=== PATIENT | male | born 1980 | race Caucasian/White ===

== ENCOUNTER 2016-02-15 17:37 | Emergency (ER) | payer OTHER ==
[~2016-02-15] VITALS: Ht 185.4 cm; Wt 102.8 kg
[~2016-02-15 17:37] MED LIST: ACET-1311 PO; MULT-506 PO
[2016-02-15 17:41] VITALS: Ht 185.4 cm; Wt 102.8 kg
[2016-02-15] MEDS ORDERED: MoRPHine SULFATE 10 MG/ML CARP/VIAL IM STA (18:18)
[2016-02-15] MEDS ORDERED: KETOROLAC TROMETHAMINE 60 MG/2 ML VIAL IM STA (18:18)
[2016-02-15] MEDS ORDERED: DIAZEPAM 5MG TAB PO ONE (18:30)
--- NOTE | 2016-02-15 20:55 | DIAGNOSTIC IMAGING REPORT ---
LUMBAR SPINE MRI HISTORY: lumbar back pain, saddle paresthesias TECHNIQUE: Multiplanar multisequence MRI of the lumbar spine was performed without the use of contrast. COMPARISON: None. FINDINGS: For the purpose of the report the L5-S1 disc space will be located on axial image 23 of 25. Alignment and curvature are intact. There is no fracture or subluxation. Vertebral body heights are well-maintained. The conus terminates at the T12-L1 disc space level. Mild disc space narrowing and disc desiccation at L4-L5. Paraspinal soft tissues are unremarkable. L1-L2: No significant central canal or neural foraminal narrowing. L2-L3: No significant central canal or neural foraminal narrowing. L3-L4: No significant central canal or neural foraminal narrowing. L4-L5: Small broad-based posterior disc protrusion which likely abuts the bilateral transiting L5 nerve roots. There is no significant central canal or neural foraminal narrowing. L5-S1: No significant central canal or neural foraminal narrowing. IMPRESSION: 1. No fracture or subluxation within the lumbar spine. 2. No significant central canal or neural foraminal narrowing. 3. Small broad-based posterior disc protrusion at L4-L5 which likely abuts the bilateral transiting L5 nerve roots. Electronically signed by: Son Pitts M.D. 02/15/2016 8:53 PM Dictated Date/Time: 02/15/2016 8:50 PM
[2016-02-15] MEDS ORDERED: OXYC1TAB3 PO (21:18)
[2016-02-15] MEDS ORDERED: CYCL10TA6 PO (21:18)
--- NOTE | 2016-02-15 21:20 | EMERGENCY ROOM VISIT NOTE ---
History First contact with patient: 17:54 Chief Complaint: BACK PAIN Stated Complaint: LOW BACK PAIN History of Present Illness The patient is a 35 year old male who presents to the Emergency Room with complaints of low back pain which started this morning. The patient reports that he was doing squats at the gym when his back "seized up." He reports he has had intense pain in the back since then. He is having difficulty standing up straight and bearing weight on his legs. The pain does not radiate anywhere. He describes it as sharp and rates it 8/10. He has taken Motrin and leftover oxycodone with no relief. He denies any numbness or weakness in the legs. He does report a strange sensation in his groin area. He denies any incontinence. He does report a history of back spasms but states that he has never had symptoms this severe. The pain is worse on the left side. He denies fevers/chills or urinary symptoms. Review of Systems A complete 10-point Review of Systems was discussed with the patient, with pertinent positives and negatives listed in the History of Present Illness. All remaining Review of Systems questions can be considered negative unless otherwise specified. Social History Smoking Status: Never Smoker Current/Historical Medications Scheduled Cyclobenzaprine Hcl (Flexeril), 10 MG PO TID Multivitamin (Multivitamin), 1 TAB PO DAILY Scheduled PRN Oxycodone Ir (Roxicodone Ir), 1-2 TAB PO Q4H PRN for Pain Allergies Coded Allergies: No Known Allergies (Verified , 02/15/16) Physical Exam Vital Signs Date Time Temp Pulse Resp B/P Pulse Ox O2 Delivery O2 Flow Rate FiO2 02/15/16 21:31 36.4 68 16 142/89 95 02/15/16 17:41 36.4 68 16 142/89 95 Room Air Physical Exam VITALS: Vitals are noted on the nurse's note and reviewed by myself. Vital signs stable. GENERAL: This is a 35-year-old male, in no acute distress, nondiaphoretic, well- developed well-nourished. SKIN: Capillary reflex less than 2 seconds. HEART: Regular rate and rhythm without murmurs gallops or rubs. LUNGS: Clear to auscultation bilaterally without wheezes, rales or rhonchi. No retractions or accessory muscle use. ABDOMEN: Positive bowel sounds x 4. Soft, nontender, without masses or organomegaly. MUSCULOSKELETAL: There is vague tenderness of the right lumbar region. Full range of motion of the spine. Strength 5/5 in bilateral lower extremities. Negative straight leg raise test. NEURO: Patient was alert and oriented to person place and time. Normal sensation to light and sharp touch. Deep tendon reflexes 2+ throughout. No focal neurological deficits. Medical Decision & Procedures ER Provider Diagnostic Interpretation: LUMBAR SPINE MRI HISTORY: lumbar back pain, saddle paresthesias TECHNIQUE: Multiplanar multisequence MRI of the lumbar spine was performed without the use of contrast. COMPARISON: None. FINDINGS: For the purpose of the report the L5-S1 disc space will be located on axial image 23 of 25. Alignment and curvature are intact. There is no fracture or subluxation. Vertebral body heights are well-maintained. The conus terminates at the T12-L1 disc space level. Mild disc space narrowing and disc desiccation at L4-L5. Paraspinal soft tissues are unremarkable. L1-L2: No significant central canal or neural foraminal narrowing. L2-L3: No significant central canal or neural foraminal narrowing. L3-L4: No significant central canal or neural foraminal narrowing. L4-L5: Small broad-based posterior disc protrusion which likely abuts the bilateral transiting L5 nerve roots. There is no significant central canal or neural foraminal narrowing. L5-S1: No significant central canal or neural foraminal narrowing. IMPRESSION: 1. No fracture or subluxation within the lumbar spine. 2. No significant central canal or neural foraminal narrowing. 3. Small broad-based posterior disc protrusion at L4-L5 which likely abuts the bilateral transiting L5 nerve roots. Medications Administered Medications (Trade) Dose Ordered Sig/Lynette Route Start Time Stop Time Status Last Admin Dose Admin Morphine Sulfate (MoRPHine SULFATE INJ) 8 mg NOW STAT IM 02/15/16 18:18 02/15/16 18:20 DC 02/15/16 18:26 8 MG Diazepam (Valium Tab) 10 mg NOW ONCE PO 02/15/16 18:30 02/15/16 18:31 DC 02/15/16 18:25 10 MG Ketorolac Tromethamine (Toradol Inj) 60 mg NOW STAT IM 02/15/16 18:18 02/15/16 18:20 DC 02/15/16 18:26 60 MG Medical Decision Differential diagnosis includes disc herniation, cauda equina syndrome, cord compression, osteomyelitis, epidural abscess, renal calculus, pyelonephritis, muscular strain, lumbar spasm, malignancy, among others. The patient was evaluated as above. The patient presents with acute onset of back pain while exercising today. There is no numbness, weakness or incontinence, but the patient does state that he is aware female in his groin which could be consistent with saddle paresthesias. For this reason, a MRI was performed. The patient was medicated with a milligrams morphine IM, 60 mg Toradol IM and 10 mg Valium orally. He did have significant relief of his symptoms with this treatment. MRI was performed and did show a disc herniation at L4 to anesthetize with no evidence of cord compression. Conservative measures were discussed with the patient. He will be placed on a muscle relaxer and pain medication at home. He was informed that he will need to follow-up with his primary care provider for further evaluation of his back pain. He will return for any new/concerning symptoms. The patient verbalizes understanding of my assessment and treatment plan and he was discharged home in good condition. [place] Drug Monitoring Program Search Results: patient reviewed within database, no issues identified Impression Primary Impression: Lumbar disc herniation Departure Information Dispostion Home / Self-Care Condition GOOD Prescriptions Cyclobenzaprine Hcl (FLEXERIL) 10 Mg Tab 10 MG PO TID for 5 Days, #15 TAB Prov: Maida Medina PA-C 02/15/16 Oxycodone Ir (Roxicodone Ir) 5 Mg Tab 1-2 TAB PO Q4H Y for Pain, #15 TAB For Initial Treatment Prov: Maida Medina PA-C 02/15/16 Referrals Roscoe Mello M.D. (PCP) Horacio Marsh, DO Patient Instructions A Signature Page, My [facility] Additional Instructions You have been treated in the Emergency Department for Back Pain. You have received pain medicine in the emergency department which impairs your ability to operate a vehicle. It is illegal for you to drive after receiving these medicines. You have been prescribed OxyIR to be used for pain control. This is a narcotic medication. You cannot drive or consume alcohol while on this medicine. This medicine should only be used for pain that cannot be controlled with over-the- counter pain medicines. You have been prescribed Flexeril (cyclobenzaprine) 1-2 tabs orally, three times per day. Do NOT exceed 30 mg (6 tabs) per day. Take your first dose at bedtime as it can make you drowsy. Always take all medications as prescribed. For pain control, you can use the following [id number] medicines (if >12 yo): - Regular strength (325mg/tab) Tylenol (acetaminophen) 2 tabs every 4-6 hours as needed. Do not exceed 12 tablets in a 24 hour period. Avoid taking more than 4 grams (4000 mg) of Tylenol per day. This includes any other sources of acetaminophen you may take on a regular basis. - Regular strength (200 mg/tab) Advil (ibuprofen) 1-2 tabs every 4-6 hours as needed. Do not exceed a dose of 3200 mg per day. If this is an acute injury, ice can be applied to the area of pain for the first 3 days to help decrease pain and inflammation. After the first 3 days, a heating pad can be used over the area for continued soothing relief. Follow-up with your primary care provider or orthopedics as needed. Return to the Emergency Department if your current symptoms worsen despite treatment course outlined above, or if you develop any of the following symptoms : intractable pain despite aforementioned treatment course, loss of control of your bowel or bladder, numbness or tingling in your groin, or development of a fever.
[2016-02-15 21:31] VITALS: BP 142/89; PULSE 68; TEMP 36.4; O2SAT 95
== END 2016-02-15 21:32 | disposition home or self-care (01) ==
LOC: C.EDB 17:38 → C.EDD 21:32
DX: M51.26 Other intervertebral disc displacement, lumbar region (principal)